=== PATIENT | female | born 1940 | race Caucasian/White ===

== ENCOUNTER 2021-08-31 01:50 | Observation (INO) ==
[2021-08-31 02:46] LABS: Basophils # 0.1 K/mcL (0.0-0.2); Basophils % 0.7 %; Eosinophils # 0.2 K/mcL (0.0-0.6); Eosinophils % 1.9 %; Hematocrit 43.6 % (35.3-44.9); Hemoglobin 14.3 g/dL (11.5-15.4); Immature Granulocytes % 0.4 % (0-4); Lymphocytes # 2.6 K/mcL (0.6-4.6); Mean Corpuscular HGB Conc 32.8 g/dL (31.6-35.5); Mean Corpuscular Volume 94.4 fL (83.0-100.0); Mean Platelet Volume 10.7 fL (9.4-12.4); Monocytes # 0.7 K/mcL (0.0-1.3); Neutrophils # 6.1 K/mcL (1.6-8.9); Platelet Count 185 K/mcL (140-400); Red Blood Count 4.62 M/mcL (3.82-4.97); Red Cell Distribution Width 13.2 % (11.5-14.5); White Blood Count 9.6 K/mcL (4.3-11.1)
[2021-08-31 03:10] LABS: BUN/Creatinine Ratio 18 (6-26); Blood Urea Nitrogen 20 mg/dL (8-23); Calcium 9.5 mg/dL (8.6-10.3); Carbon Dioxide 25 mEq/L (23-29); Chloride 107 mEq/L (98-107); Glucose 124 mg/dL (70-105); Osmolality,Calculated 298 (280-300); Potassium 3.8 mEq/L (3.5-5.1); Sodium 142 mEq/L (136-145); Troponin I < 0.03 ng/mL (< 0.04); eGFR For African Americans 57 (> 60); eGFR For Non-African Americans 47 (> 60)
[2021-08-31] MEDS ORDERED: Isovue-370 500 ML BOTTLE IVP ONE (03:11)
[2021-08-31] MEDS: Nitroglycerin 0.4 MG TAB.SUBL SL SCH ×3 (04:31→05:31)
[2021-08-31] MEDS ORDERED: Ringers Solution, Lactated 1,000 ML IVC ONE (04:38)
[2021-08-31] MEDS ORDERED: Naloxone 0.4 MG/ML INJ IVP PRN (05:59)
[2021-08-31] MEDS ORDERED: Melatonin 3 MG TABLET PO PRN (05:59)
[2021-08-31] MEDS ORDERED: Ondansetron 4 MG/2 ML VIAL IVP PRN (05:59)
[2021-08-31] MEDS ORDERED: Perflutren Lipid Microsphere 1.3 ML in 0.9 % Sodium Chloride 8.7 ML IVP PRN (06:43)
[2021-08-31] MEDS: 0.9 % Sodium Chloride 1,000 ML IVC SCH ×2 (06:55→16:24)
[2021-08-31] MEDS ORDERED: Regadenoson 0.4 MG/5 ML SYRINGE IVP ONE (07:24)
[2021-08-31 10:37] LABS: INR 1.1; Prothrombin Time 12.8 Seconds (9.4-12.1)
[2021-08-31 10:45] LABS: Alanine Aminotransferase 13 Units/L (7-52); Albumin 3.7 g/dL (3.5-5.7); Albumin/Globulin Ratio 1.8 (1.1-2.2); Alkaline Phosphatase 38 Units/L (34-104); Aspartate Amino Transferase 17 Units/L (13-39); Bilirubin,Direct 0.1 mg/dL (0.0-0.2); Bilirubin,Indirect 0.4 mg/dL (0.0-1.0); Bilirubin,Total 0.5 mg/dL (0.3-1.0); Globulin 2.1 g/dL (2.4-3.5); Total Protein 5.8 g/dL (6.4-8.9)
[2021-08-31 10:46] LABS: Chol/HDL Ratio 2.9 (0-4.9); Magnesium 1.5 mg/dL (1.6-2.6); Phosphorous 3.1 mg/dL (2.7-4.5); Troponin I < 0.03 ng/mL (< 0.04)
[2021-08-31 10:58] LABS: Thyroid Stimulating Hormone 0.914 mcIU/mL (0.340-5.600)
[2021-08-31] MEDS ORDERED: Magnesium Oxide 400 MG TABLET PO ONE (23:34)
[2021-09-01] MEDS: 0.9 % Sodium Chloride 1,000 ML IVC SCH ×3 (01:15→12:11)
[2021-09-01 01:26] LABS: Bilirubin,Urine Negative (Negative); Blood,Urine Negative (Negative); Clarity,Urine Clear (Clear); Color,Urine Light-Yellow (Yellow); Glucose,Urine (UA) Normal (Normal); Ketones,Urine Negative (Negative); Leukocyte Esterase,Urine Small (Negative); Mucus,Urine Few per lpf (None-Few); Nitrite,Urine Negative (Negative); Protein,Urine Negative (Neg-Trace); RBC,Urine 0-3 per hpf (0-3); Squamous Epithelial Cell,Urine Few per hpf (None-Few); Urobilinogen,Urine Normal (Normal)
[2021-09-01 01:50] LABS: Basophils % 0.3 %; Eosinophils # 0.1 K/mcL (0.0-0.6); Eosinophils % 0.9 %; Hematocrit 38.1 % (35.3-44.9); Immature Granulocytes % 0.3 % (0-4); Lymphocytes # 2.6 K/mcL (0.6-4.6); Lymphocytes % 28.7 %; Mean Corpuscular HGB Conc 33.1 g/dL (31.6-35.5); Mean Corpuscular Hemoglobin 30.8 pg (28.0-33.3); Mean Corpuscular Volume 93.2 fL (83.0-100.0); Mean Platelet Volume 10.6 fL (9.4-12.4); Monocytes # 0.8 K/mcL (0.0-1.3); Monocytes % 9.3 %; Neutrophils # 5.4 K/mcL (1.6-8.9); Platelet Count 171 K/mcL (140-400); Red Blood Count 4.09 M/mcL (3.82-4.97); Red Cell Distribution Width 13.3 % (11.5-14.5); Segmented Neutrophils % 60.5 %; White Blood Count 8.9 K/mcL (4.3-11.1)
[2021-09-01 01:52] LABS: Hemoglobin 12.6 g/dL (11.5-15.4)
[2021-09-01 02:11] LABS: Calcium 8.7 mg/dL (8.6-10.3); Potassium 3.6 mEq/L (3.5-5.1)
[2021-09-01] MEDS: Pregabalin 50 MG CAPSULE PO SCH (07:17)
[2021-09-01] MEDS: Metoprolol XL (24 HR) Succ 25 MG TAB.ER.24H PO SCH (07:18)
[2021-09-01] MEDS: Aspirin 81 MG TAB.CHEW PO SCH (08:32)
[2021-09-01] MEDS ORDERED: RAMIPRIL 2.5 MG PO SCH (09:00)
[2021-09-01] MEDS ORDERED: *HR* Midazolam HCl 2 MG/2 ML VIAL ONE (16:45)
[2021-09-01] MEDS ORDERED: *HR* FentaNYL (PF) 100 MCG/2 ML VIAL ONE (16:45)
[2021-09-01] MEDS ORDERED: *HR* Heparin 10,000 UNIT/10 ML VIAL ONE (16:46)
[2021-09-01] MEDS ORDERED: Nitroglycerin 1,000 MCG/5 ML VIAL IV ONE (16:46)
[2021-09-01] MEDS ORDERED: Heparin 1,000 UNITS/500 mL 500 ML ONE (16:46)
[2021-09-01] MEDS ORDERED: ISOVUE-370 200 ML INFUS..BTL ONE (16:46)
[2021-09-01] MEDS ORDERED: 0.9 % Sodium Chloride 2,000 ML ONE (16:46)
[2021-09-02 02:22] LABS: Calcium 8.4 mg/dL (8.6-10.3); Potassium 3.7 mEq/L (3.5-5.1)
[2021-09-02 06:26] VITALS: TEMP 97.8
[2021-09-02] MEDS: 0.9 % Sodium Chloride 1,000 ML IVC SCH ×2 (06:26→07:36)
[2021-09-02] MEDS ORDERED: 0.9 % Sodium Chloride 500 ML IVC ONE (06:49)
[2021-09-02] MEDS: Aspirin 81 MG TAB.CHEW PO SCH (08:03)
[2021-09-02] MEDS: Pregabalin 50 MG CAPSULE PO SCH (08:03)
[2021-09-02] MEDS: Metoprolol XL (24 HR) Succ 25 MG TAB.ER.24H PO SCH (08:03)
[2021-09-02 10:10] VITALS: BP 122/78; PULSE 62; O2SAT 95
[2021-09-02 12:51] LABS: Calcium 8.4 mg/dL (8.6-10.3); Potassium 4.1 mEq/L (3.5-5.1)
== END 2021-09-02 13:57 | disposition home or self-care (01) ==
LOC: 3BNU 01:50 → EMEROOARM 01:50 → SUATTDRO 05:48 → 3BNU 06:14
PROVIDERS: ADMIT Internal Medicine; ATTEND Nurse Practitioner